=== PATIENT | female | born 1965 | race Caucasian/White ===

== ENCOUNTER 2018-08-02 10:49 | Day surgery (SDC) | payer BC ==
[2018-07-27 15:51] VITALS: BMI 27.1
[2018-08-02 14:26] VITALS: BP 118/68; PULSE 54; TEMP 97.8
--- NOTE | 2018-08-04 17:13 | PATH ---
Surgical Pathology Report Patient Name: SHANNON SPRINGER [facility]. Rec. #: [id number] /Age/Gender: 1965 (Age: 53) / F Account: [id number] Location: [facility]-ENDOSCOPY Taken: 08/02/2018 Received: 08/02/2018 Reported: 08/04/2018 Physicians: Alvarez Huffman M.D. Specimen(s) Received RECTOSIGMOID Clinical History rule out colon cancer Postoperative diagnosis: Polyp Final Diagnosis RECTOSIGMOID, BIOPSY: TUBULAR ADENOMA. Electronically Signed Chacha Johnson M.D. Gross Description Received in formalin, labeled "rectosigmoid" is a mason, irregular portion of soft tissue measuring 0.5 cm. in greatest dimension. The base of the specimen is inked in blue, and bisected. The specimen is submitted in toto in one cassette. MLSZ/08/02/2018 sanml/08/02/2018
== END 2018-08-02 14:26 | disposition home or self-care (01) ==
LOC: FASU-ENDO 10:49
PROVIDERS: ATTEND Internal Medicine Gastroenterology
PROC: 0DBN8ZX Excision of Sigmoid Colon, Via Natural or Artificial Opening Endoscopic, Diagnostic (ICD-10-PCS; principal; 2018-08-02 13:21)
DX: Z12.11 Encounter for screening for malignant neoplasm of colon (principal); D12.7 Benign neoplasm of rectosigmoid junction
CPT/HCPCS: 84703; 88305-TC